=== PATIENT | female | born 1955 | race Two or more races ===

== ENCOUNTER 2019-06-01 10:11 | Emergency (ER) | payer OTHER ==
[2019-06-01] MEDS: MECLIZINE 12.5 MG TAB PO (10:31)
[2019-06-01] MEDS: ONDANSETRON (ODT) 4 MG TAB ODT (10:31)
[2019-06-01] MEDS: NICARDipine HCL 30 MG CAPSULE PO (12:57)
== END 2019-06-01 13:00 | disposition home or self-care (01) ==
LOC: E/R 10:11
DX: R42 Dizziness and giddiness (principal)
CPT/HCPCS: 70450; 99284-25